=== PATIENT | female | born 1995 | race Two or more races ===

== ENCOUNTER 2025-01-18 16:24 | Outpatient (CLI) | payer BC, SELFPAY ==
[2025-01-21 09:52] LABS: HPV Source Cervix
[2025-01-24 08:11] LABS: Pap Test Digital Imaging Done
== END 2025-01-18 16:25 | disposition home or self-care (01) ==
PROVIDERS: Visit Provider Obstetrics & Gynecology
DX: Z12.4 Encounter for screening for malignant neoplasm of cervix (principal)
CPT/HCPCS: 87624; 87625; 88141; 88142; 88175; T1013

== ENCOUNTER 2025-01-23 08:14 | Outpatient (CLI) | payer BC, SELFPAY | END 2025-01-23 08:15 | disposition home or self-care (01) | LOC: NFLDREF 01-28 21:02 | PROVIDERS: Visit Provider Obstetrics & Gynecology | DX: Z00.00 Encounter for general adult medical examination without abnormal findings (principal) | CPT/HCPCS: 80053; 80061; 84443 ==